=== PATIENT | female | born 1945 | race Caucasian/White ===

== ENCOUNTER → 2022-01-28 | Outpatient (CLI) | payer OTHER ==
[~2022-01-28] MED LIST: ASPIRIN CHEWABL81 MG PO; CELEXA20 MG PO; COZAAR100 MG PO; COZAAR50 MG PO; DIGOXIN125 MCG PO; ELIQUIS2.5 MG PO; FEOSOL325 MG PO; GABAPENTIN300 MG PO; JANUMET 50-1,01 EACH PO; K-DUR TAB 10 M10 MEQ PO; LANTUS100 UNIT/1 SC; LASIX40 MG PO; LIPITOR TAB 2020 MG PO; LOPRESSOR100 MG PO; NORCO 7.5-3251 EACH PO; OMEPRAZOLE20 MG PO; REQUIP0.25 MG PO; ZITHROMAX250 MG PO
== END ==
LOC: EXRD 10:52
DX: R91.8 Other nonspecific abnormal finding of lung field (principal)
CPT/HCPCS: 71046